=== PATIENT | male | born 1995 | race Two or more races ===

== ENCOUNTER 2020-07-23 01:50 | Emergency (ER) | payer OTHER ==
[~2020-07-23] VITALS: Ht 180.3 cm; Wt 98.9 kg
[2020-07-23] MEDS ORDERED: LIDOCAINE 1% HCL (LOCAL ANESTH.) INJ 20ML MDV IJ ONE (04:45)
[2020-07-23 04:51] VITALS: BP 158/90
== END 2020-07-23 06:02 | disposition home or self-care (01) ==
LOC: ER 01:53
DX: S81.811A Laceration without foreign body, right lower leg, initial encounter (principal); S20.212A Contusion of left front wall of thorax, initial encounter; W01.0XXA Fall on same level from slipping, tripping and stumbling without subsequent striking against object, initial encounter; Y93.89 Activity, other specified; Y92.89 Other specified places as the place of occurrence of the external cause; Y99.8 Other external cause status
CPT/HCPCS: 12002; 71045; 99283; J2001; J7030